=== PATIENT | female | born 1975 | race Caucasian/White ===

== ENCOUNTER → 2016-04-15 | Outpatient (CLI) | payer BC | LOC: CT 06:42 | DX: J02.9 Acute pharyngitis, unspecified (principal); R22.0 Localized swelling, mass and lump, head; K11.8 Other diseases of salivary glands; E07.89 Other specified disorders of thyroid | CPT/HCPCS: 36415; 70491; 82565; 84520; J7050; Q9962 ==

== ENCOUNTER → 2016-04-20 | Outpatient (CLI) | payer BC | DX: E04.1 Nontoxic single thyroid nodule (principal); Z91.013 Allergy to seafood; Z88.1 Allergy status to other antibiotic agents | CPT/HCPCS: 76536 ==

== ENCOUNTER → 2016-05-21 | Outpatient (CLI) | payer BC | LOC: RAD 15:34 | DX: M25.512 Pain in left shoulder (principal) | CPT/HCPCS: 73030 ==

== ENCOUNTER → 2020-03-06 | Day surgery (SDC) | payer BC, OTHER ==
[~2020-03-06] MED LIST: CHILDREN'S ASPI81 MG PO; CONSTULOSE10 GM/15 M PO; CRESTOR40 MG PO; CYMBALTA20 MG PO; FENOGLIDE40 MG PO; GABAPENTIN300 MG PO; HUMULIN R100 UNIT/1 INJ; IBUPROFEN800 MG PO; LOPRESSOR50 MG PO; MAX PO; MELATONIN1 MG PO; OMEPRAZOLE20 M2 PO; ONDANSETRON ODT4 MG PO; PLAQUENIL200 MG PO; POTASSIUM99 M1 PO; PRINIVIL10 MG PO; PROVENTIL HFA6.7 GM INH; PROZAC40 MG PO; VITAMIN D250000 UNIT PO; ZOFRAN ODT 4 MG4 MG SL
== END | disposition home or self-care (01) ==
LOC: OR 07:29
DX: K59.09 Other constipation (principal); Z12.11 Encounter for screening for malignant neoplasm of colon; D12.2 Benign neoplasm of ascending colon; K62.1 Rectal polyp; K63.5 Polyp of colon; K64.0 First degree hemorrhoids; K64.1 Second degree hemorrhoids; F17.210 Nicotine dependence, cigarettes, uncomplicated; K57.30 Diverticulosis of large intestine without perforation or abscess without bleeding; K57.32 Diverticulitis of large intestine without perforation or abscess without bleeding; M79.7 Fibromyalgia; K76.0 Fatty (change of) liver, not elsewhere classified; J45.909 Unspecified asthma, uncomplicated; I10 Essential (primary) hypertension; R00.0 Tachycardia, unspecified; E28.2 Polycystic ovarian syndrome; E66.9 Obesity, unspecified; K21.00 Gastro-esophageal reflux disease with esophagitis, without bleeding; E10.65 Type 1 diabetes mellitus with hyperglycemia; E10.43 Type 1 diabetes mellitus with diabetic autonomic (poly)neuropathy; K31.84 Gastroparesis; I34.1 Nonrheumatic mitral (valve) prolapse; I25.10 Atherosclerotic heart disease of native coronary artery without angina pectoris; Z68.33 Body mass index [BMI] 33.0-33.9, adult; Z96.0 Presence of urogenital implants; Z80.0 Family history of malignant neoplasm of digestive organs; Z88.1 Allergy status to other antibiotic agents; Z88.0 Allergy status to penicillin; Z88.8 Allergy status to other drugs, medicaments and biological substances; Z79.899 Other long term (current) drug therapy; Z79.1 Long term (current) use of non-steroidal anti-inflammatories (NSAID); Z79.4 Long term (current) use of insulin; Z79.82 Long term (current) use of aspirin
CPT/HCPCS: 82962; 84703; J2250; J2704; J3010; J7040

== ENCOUNTER 2020-10-13 02:11 | Emergency (ER) | payer BC ==
[2020-10-13 03:14] LABS: HEMOGLOBIN 14.7 gm/dl (12.3-15.3); RED BLOOD COUNT 4.74 M/UL (4.00-5.10)
[2020-10-13 03:28] LABS: BUN/CREATININE RATIO 9 (0-10)
== END 2020-10-13 05:00 | disposition home or self-care (01) ==
LOC: ER1 02:11
PROVIDERS: Physician Assistant
DX: Z23 Encounter for immunization (principal); U07.1 COVID-19; Z88.1 Allergy status to other antibiotic agents; E11.9 Type 2 diabetes mellitus without complications
CPT/HCPCS: 71045; 80048; 85025; 93005; 94760; 99285; M0243; U0003

== ENCOUNTER → 2021-05-24 | Outpatient (CLI) | payer BC ==
[2021-05-25 08:12] LABS: CREATININE, URINE 91.5 mg/dL (Not Estab.)
[2021-05-25 15:45] LABS: BUN/CREATININE RATIO 11 (0-10)
== END ==
LOC: LAB 08:39
PROVIDERS: Family Medicine
DX: E11.9 Type 2 diabetes mellitus without complications (principal)
CPT/HCPCS: 36415; 80053; 80061; 82043; 82570; 83036

== ENCOUNTER 2021-06-16 05:44 | Inpatient (IN) | payer BC ==
[~2021-06-16] VITALS: Ht 162.6 cm; Wt 84.9 kg
[2021-06-16 06:46] LABS: HEMOGLOBIN 15.9 gm/dl (12.3-15.3); RED BLOOD COUNT 5.12 M/UL (4.00-5.10); WHITE BLOOD COUNT 13.1 K/UL (4.5-11.0)
[2021-06-16 07:07] LABS: BUN/CREATININE RATIO 16 (0-10)
[2021-06-16] MEDS ORDERED: FARXIGA10 MG PO (10:34)
[2021-06-16] MEDS ORDERED: DOXYCYCLINE HY100 MG PO (10:35)
[2021-06-16] MEDS ORDERED: CETIRIZINE HCL10 MG PO (10:36)
[2021-06-16] MEDS ORDERED: FLUCONAZOLE150 MG PO (10:36)
[2021-06-16 17:07] LABS: BUN/CREATININE RATIO 16 (0-10)
[2021-06-16 20:19] LABS: HEMOGLOBIN 14.6 gm/dl (12.3-15.3); RED BLOOD COUNT 4.78 M/UL (4.00-5.10)
[2021-06-16 20:21] LABS: WHITE BLOOD COUNT 16.5 K/UL (4.5-11.0)
[2021-06-16 20:38] LABS: BUN/CREATININE RATIO 15 (0-10)
[2021-06-17 06:10] LABS: HEMOGLOBIN 13.9 gm/dl (12.3-15.3); RED BLOOD COUNT 4.57 M/UL (4.00-5.10); WHITE BLOOD COUNT 17.8 K/UL (4.5-11.0)
[2021-06-17 06:48] LABS: BUN/CREATININE RATIO 18 (0-10)
[2021-06-17] MEDS ORDERED: NICOTINE PATCH1 EAC2 TD (09:16)
[2021-06-17] MEDS ORDERED: ATORVASTATIN CA20 MG PO (09:16)
[2021-06-17] MEDS ORDERED: LANTUS INS100 UTS/M1 SQ (09:16)
[2021-06-17] MEDS ORDERED: NITROGLYCERIN0.4 MG SL (09:16)
[2021-06-17] MEDS ORDERED: ASPIRIN EC81 MG PO (09:16)
[2021-06-17] MEDS ORDERED: ISOSORBIDE MONO30 MG PO (09:16)
[2021-06-17] MEDS ORDERED: LOPRESSOR 25 MG25 MG PO (09:16)
[2021-06-17] MEDS ORDERED: HEPARIN SO5000 UNIT2 IV (09:16)
[2021-06-17] MEDS ORDERED: HUMALOG 10100 UNITS/ SC ×2 (09:16)
== END 2021-06-19 13:20 | disposition short-term general hospital (02) | DRG 251 ==
LOC: ER1 05:44 → CDU 08:45 → PROG CARE 08:45
PROVIDERS: Internal Medicine Interventional Cardiology; Physician Assistant Medical; ADMIT Internal Medicine
PROC: B24BZZZ Ultrasonography of Heart with Aorta (ICD-10-PCS; 2021-06-16)
PROC: 02703ZZ Dilation of Coronary Artery, One Artery, Percutaneous Approach (ICD-10-PCS; principal; 2021-06-17)
PROC: 4A023N7 Measurement of Cardiac Sampling and Pressure, Left Heart, Percutaneous Approach (ICD-10-PCS; 2021-06-17)
PROC: B2111ZZ Fluoroscopy of Multiple Coronary Arteries using Low Osmolar Contrast (ICD-10-PCS; 2021-06-17)
DX: I21.4 Non-ST elevation (NSTEMI) myocardial infarction (principal); I25.10 Atherosclerotic heart disease of native coronary artery without angina pectoris; I08.1 Rheumatic disorders of both mitral and tricuspid valves; Z20.822 Contact with and (suspected) exposure to COVID-19; E78.5 Hyperlipidemia, unspecified; E11.43 Type 2 diabetes mellitus with diabetic autonomic (poly)neuropathy; K31.84 Gastroparesis; M79.7 Fibromyalgia; E11.65 Type 2 diabetes mellitus with hyperglycemia; Z96.0 Presence of urogenital implants; F17.210 Nicotine dependence, cigarettes, uncomplicated; Z79.4 Long term (current) use of insulin; Z79.01 Long term (current) use of anticoagulants; Z79.82 Long term (current) use of aspirin; Z95.5 Presence of coronary angioplasty implant and graft; Z88.1 Allergy status to other antibiotic agents; Z88.5 Allergy status to narcotic agent; Z88.8 Allergy status to other drugs, medicaments and biological substances; Z82.49 Family history of ischemic heart disease and other diseases of the circulatory system; Z80.0 Family history of malignant neoplasm of digestive organs
CPT/HCPCS: ECHO; 36415; 71045; 80048; 80053; 80061; 82550; 82553; 82962; 83735; 84484; 84703; 85025; 85027; 85347; 85610; 85730; 92920; 93005; 93306; 94640; 94664; 94760; 96374; 96375; 99152; 99153; 99285; C1725; C1769; C1887; C1894; J0461; J1644; J2250; J2270; J2405; J3010; J7030; J7040; Q9967; U0002